=== PATIENT | male | born 1960 | race Caucasian/White ===

== ENCOUNTER 2018-06-29 16:45 | Inpatient (IN) | payer OTHER ==
[~2018-06-29] VITALS: Ht 165.1 cm; Wt 62.0 kg
[2018-06-29 16:51] VITALS: Ht 165.1 cm; Wt 62.0 kg
[2018-06-29 17:34] LABS: PLATELET COUNT 221 x10^3mcL (130-400); RED CELL DISTRIBUTION WIDTH 14.2 % (11.5-14.5)
[2018-06-29 17:41] LABS: CALCIUM 7.8 mg/dL (8.5-10.1); CARBON DIOXIDE 24.3 mmol/L (21-32); CHLORIDE SERUM 100 mmol/L (98-107); CREATININE SERUM 0.8 mg/dL (0.7-1.3); GFR1 > 60 mL/min; GLUCOSE SERUM 300 mg/dL (74-106); POTASSIUM SERUM 4.6 mmol/L (3.5-5.1); SODIUM SERUM 136 mmol/L (136-145)
[2018-06-29 17:45] LABS: ALKALINE PHOSPHATASE 106 U/L (46-116); ALT/SGPT 29 U/L (16-63); AST/SGOT 14 U/L (15-37); BILIRUBIN TOTAL 0.2 mg/dL (0.20-1.00)
[2018-06-29 17:46] LABS: ALBUMIN 1.8 g/dL (3.4-5.0); TOTAL PROTEIN, SERUM 5.4 g/dL (6.4-8.2)
[2018-06-29 18:11] LABS: BAND NEUTROPHIL 19 % (0-10); MONOCYTE 1 % (0-7); PLATELET MORPHOLOGY PLATELETS NORMAL; SEGMENTED NEUTROPHILS 75 % (37-75); rbc morphology (normal/abnorm) NORMAL (NORMAL)
[2018-06-29] MEDS ORDERED: HYDROXYZINE HYD25 MG PO (19:01)
[2018-06-29] MEDS ORDERED: BENADRYL ALLERG25 M1 PO (19:02)
[2018-06-29] MEDS ORDERED: ZOLOFT25 MG PO (19:02)
[2018-06-29] MEDS ORDERED: CYCLOBENZAPRINE10 MG PO (19:02)
[2018-06-29] MEDS ORDERED: NAPROSYN500 MG PO (19:02)
[2018-06-29] MEDS ORDERED: MORPHINE SULFAT30 M2 PO (19:03)
[2018-06-29] MEDS ORDERED: METFORMIN500 M1 PO (19:03)
[2018-06-29] MEDS ORDERED: HYDROMORPHONE2 M1 PO (19:03)
[2018-06-29] MEDS ORDERED: DEXAMETHASONE4 MG PO (19:04)
[2018-06-29] MEDS ORDERED: ATORVASTATIN CA40 M1 PO (19:05)
[2018-06-29 21:50] LABS: microscopic required? NO
[2018-06-29 22:19] LABS: urine erythrocyte NEGATIVE (NEGATIVE)
[2018-06-29 23:20] LABS: MAGNESIUM 1.4 mg/dL (1.8-2.4); PHOSPHOROUS 4.8 mg/dL (2.5-4.9)
[2018-06-29 23:31] VITALS: BP 102/56
[2018-06-30 06:04] VITALS: BP 91/48
[2018-06-30 06:34] LABS: PLATELET COUNT 156 x10^3mcL (130-400)
[2018-06-30 06:54] LABS: RED CELL DISTRIBUTION WIDTH 14.6 % (11.5-14.5)
[2018-06-30 07:04] LABS: CALCIUM 7.3 mg/dL (8.5-10.1); CARBON DIOXIDE 21.2 mmol/L (21-32); CHLORIDE SERUM 108 mmol/L (98-107); CREATININE SERUM 0.8 mg/dL (0.7-1.3); GFR1 > 60 mL/min; GLUCOSE SERUM 241 mg/dL (74-106); MAGNESIUM 2.1 mg/dL (1.8-2.4); POTASSIUM SERUM 4.5 mmol/L (3.5-5.1); SODIUM SERUM 140 mmol/L (136-145)
[2018-06-30 09:53] LABS: PLATELET COUNT 185 x10^3mcL (130-400)
[2018-06-30 09:56] LABS: RED CELL DISTRIBUTION WIDTH 14.6 % (11.5-14.5)
[2018-06-30 14:29] LABS: BAND NEUTROPHIL 3 % (0-10); MONOCYTE 2 % (0-7); SEGMENTED NEUTROPHILS 91 % (37-75)
[2018-06-30 14:30] LABS: BASOPHIL 0 % (0-2); PLATELET MORPHOLOGY PLATELETS DECREASED; rbc morphology (normal/abnorm) ABNORMAL (NORMAL)
[2018-06-30 15:01] LABS: BAND NEUTROPHIL 20 % (0-10); BASOPHIL 0 % (0-2); MONOCYTE 1 % (0-7); SEGMENTED NEUTROPHILS 71 % (37-75)
[2018-06-30 15:02] LABS: PLATELET MORPHOLOGY PLATELETS NORMAL; rbc morphology (normal/abnorm) ABNORMAL (NORMAL)
[2018-06-30 16:00] VITALS: BP 106/71
[2018-06-30 17:11] VITALS: BP 91/48
[2018-06-30 20:00] VITALS: BP 97/42
[2018-06-30 20:45] VITALS: BP 109/78
[2018-06-30 22:22] VITALS: BP 116/78
[2018-07-01] VITALS (11 sets, daily range): BP systolic 50–140; BP diastolic 20–83
[2018-07-01 05:34] LABS: CALCIUM 7.1 mg/dL (8.5-10.1); CARBON DIOXIDE 21.9 mmol/L (21-32); CHLORIDE SERUM 109 mmol/L (98-107); CREATININE SERUM 1.3 mg/dL (0.7-1.3); GFR1 > 60 mL/min; GLUCOSE SERUM 254 mg/dL (74-106); PHOSPHOROUS 5.3 mg/dL (2.5-4.9); SODIUM SERUM 140 mmol/L (136-145)
[2018-07-01 05:35] LABS: RED CELL DISTRIBUTION WIDTH 14.5 % (11.5-14.5)
[2018-07-01 05:41] LABS: MAGNESIUM 4.2 mg/dL (1.8-2.4); PLATELET COUNT 129 x10^3mcL (130-400)
[2018-07-01 07:03] LABS: BAND NEUTROPHIL 27 % (0-10); BASOPHIL 0 % (0-2); MONOCYTE 1 % (0-7); SEGMENTED NEUTROPHILS 69 % (37-75); rbc morphology (normal/abnorm) ABNORMAL (NORMAL)
[2018-07-01 07:04] LABS: PLATELET MORPHOLOGY PLATELETS DECREASED
== END 2018-07-01 13:34 | disposition expired | DRG 720 ==
LOC: ED 16:45 → IC 21:08 → DU 21:08 → IC 06-30 08:17 → DU 06-30 08:17 → IC 06-30 08:21 → DU 06-30 08:30 → IC 06-30 08:48
PROVIDERS: Emergency Medicine; Internal Medicine Gastroenterology; ADMIT General Practice
PROC: B548ZZA Ultrasonography of Superior Vena Cava, Guidance (ICD-10-PCS; 2018-06-30)
PROC: 3E0G8GC Introduction of Other Therapeutic Substance into Upper GI, Via Natural or Artificial Opening Endoscopic (ICD-10-PCS; 2018-06-30)
PROC: 0W3P8ZZ Control Bleeding in Gastrointestinal Tract, Via Natural or Artificial Opening Endoscopic (ICD-10-PCS; 2018-06-30)
PROC: 30233N1 Transfusion of Nonautologous Red Blood Cells into Peripheral Vein, Percutaneous Approach (ICD-10-PCS; 2018-06-30)
PROC: 5A1935Z Respiratory Ventilation, Less than 24 Consecutive Hours (ICD-10-PCS; principal; 2018-06-30 16:00)
PROC: 0BH17EZ Insertion of Endotracheal Airway into Trachea, Via Natural or Artificial Opening (ICD-10-PCS; 2018-06-30 16:00)
PROC: 02HV33Z Insertion of Infusion Device into Superior Vena Cava, Percutaneous Approach (ICD-10-PCS; 2018-06-30 16:00)
DX: A41.9 Sepsis, unspecified organism (principal); N17.0 Acute kidney failure with tubular necrosis; J96.00 Acute respiratory failure, unspecified whether with hypoxia or hypercapnia; R65.21 Severe sepsis with septic shock; J18.1 Lobar pneumonia, unspecified organism; K25.4 Chronic or unspecified gastric ulcer with hemorrhage; C34.90 Malignant neoplasm of unspecified part of unspecified bronchus or lung; I46.9 Cardiac arrest, cause unspecified; E83.42 Hypomagnesemia; E83.39 Other disorders of phosphorus metabolism; D63.1 Anemia in chronic kidney disease; E83.51 Hypocalcemia; D64.9 Anemia, unspecified; E11.9 Type 2 diabetes mellitus without complications; S20.221A Contusion of right back wall of thorax, initial encounter; X58.XXXA Exposure to other specified factors, initial encounter; Z79.899 Other long term (current) drug therapy; Z90.49 Acquired absence of other specified parts of digestive tract; Y93.89 Activity, other specified; Y92.89 Other specified places as the place of occurrence of the external cause
CPT/HCPCS: 36556; 36600; 82962; 83880; 87804; A4628; C9113; J0171; J0456; J0610; J0696; J1170; J1200; J1610; J1642; J1720; J1885; J2060; J2185; J2250; J2270; J2310; J2370; J2405; J2543; J2704; J2765; J2930; J3010; J3370; J3475; J3490; J7030; J7050; J7613; J7644; P9016; P9047; Q0092; Q9967